=== PATIENT | female | born 2000 | race Caucasian/White ===

== ENCOUNTER 2024-09-05 20:32 | Emergency (ER) | payer BC, SELFPAY ==
[2024-09-05 20:53] VITALS: BP 120/67; PULSE 67; RESP 16; TEMP 36.4; O2SAT 97; BMI 19.3
--- NOTE | 2024-09-05 21:16 | ED_ITS ---
HPI - General Adult General Chief complaint: Chest Pain Stated complaint: chest pain, shortness of breath, dizziness Time Seen by Provider: 09/05/24 21:12 History of Present Illness HPI narrative: Pt reports she has had concerns about heart issues since May, had a workup at [facility] with personnel monitor . Pt states she does not have a dx at this point but has had elevated heart rates up to 200 BPM. Pt was advised if she had more frequent chest pains to be seen in ER. About 1 hour ago pt states having frequent intermittent chest pain, rates it as a 7 /10 when it comes 24-year-old young woman presenting to the emergency department with concern of chest pain. These are sharp momentary but of occurring more often today. In the right chest they are occurring primarily. Has a couple as we are talking which do not appear to be a notable on monitor. She notes rather high heart rates whenever she even mildly exerts herself. All the symptoms seem to have begun in May. She had a ZIO patch placed. I am able to review summarized results of this and noted to be without significant findings as described by primary provider. Labs were also done in July of this year and all unremarkable. This includes normal TSH and hemoglobin and chemistries. She does note a history of rather heavy periods and intermittently dizzy lightheaded and does seem to have an orthostatic component. She does admit that there was some conversation of POTS as a potential diagnosis. She notes her sister has this diagnosis. Has been actually referred now to [facility] subspecialist of some sort. She inquired as to whether not needed to be seen for chest pain or at least how often or how intense and was subsequently recommended to be seen in the emergency department due to frequency sharp pains. Diagnosis of PVCs has not been made. While were talking she does have a couple episodes where she grabs at her chest for just a moment. I did not see any evidence of arrhythmia on personnel monitor at this time. Related Data Home Medications ?Medication ?Instructions ?Recorded ?Confirmed hydroxyzine HCl 25 mg tablet 25 - 50 mg PO Q6H PRN anxiety 09/05/24 09/05/24 Allergies Allergy/AdvReac Type Severity Reaction Status Date / Time amoxicillin Allergy Unknown Verified 09/05/24 20:57 Review of Systems Status of ROS: Reports: 6 or more systems reviewed and unremarkable except as noted in History and below [facility] Medical History (Updated 09/05/24 @ 22:50 by Satish Garsia MD) No significant past medical history Surgical History (Updated 09/05/24 @ 22:08 by Raul Velazquez RN) No significant past surgical history Social History Smoking Status: Never smoker Second hand tobacco smoke exposure: No How often do you have a drink containing alcohol: never AUDIT-C Alcohol total score: 0 Non-prescribed substance use: denies use Exam Narrative: Exam Narrative: Very pleasant. Easily conversant. Breathing easily. Lungs are clear. Heart in regular rate and rhythm without murmur rub or gallop. No reproducible pain to palpation this time. She indicates that had been sore recently in this left low chest. She is well-perfused peripherally. Cranial nerves 2-12 intact. Const: Vital Signs, click to edit/add: Vital Signs - 24 hr 09/05/24 20:53 09/05/24 21:29 09/05/24 21:45 Temperature 97.6 F Pulse Rate [Pulse Oximeter] 67 Pulse Rate [orthos tatic lying Right Pulse Oximeter] 63 Pulse Rate [orthos tatic sitting Righ t Pulse Oximeter] 61 Pulse Rate [orthos tatic standing Rig ht Pulse Oximeter] 93 Respiratory Rate 16 Blood Pressure [Ri ght Upper Arm] 120/67 Blood Pressure [or thostatic lying Le ft Arm] 115/67 Blood Pressure [or thostatic sitting Left Arm] 118/75 Blood Pressure [or thostatic standing Left Arm] 124/99 H Pulse Oximetry 97 99 Oxygen Delivery Me thod Room Air 09/05/24 22:57 09/05/24 23:16 Temperature 97.6 F 97.6 F Pulse Rate [Pulse Oximeter] 74 74 Pulse Rate [orthos tatic lying Right Pulse Oximeter] Pulse Rate [orthos tatic sitting Righ t Pulse Oximeter] Pulse Rate [orthos tatic standing Rig ht Pulse Oximeter] Respiratory Rate 16 16 Blood Pressure [Ri ght Upper Arm] 118/65 118/65 Blood Pressure [or thostatic lying Le ft Arm] Blood Pressure [or thostatic sitting Left Arm] Blood Pressure [or thostatic standing Left Arm] Pulse Oximetry 97 Oxygen Delivery Me thod Room Air Documenting provider has reviewed patient's vital signs: yes Course Vital Signs Vital signs: Initial Vital Signs Temperature 97.6 F 09/05/24 20:53 Temperature Source Temporal Artery Scan 09/05/24 20:53 Pulse Rate 67 09/05/24 20:53 Respiratory Rate 16 09/05/24 20:53 Blood Pressure 120/67 09/05/24 20:53 Blood Pressure Mean 84 09/05/24 20:53 Blood Pressure Position Sitting 09/05/24 20:53 Pulse Oximetry 97 09/05/24 20:53 Oxygen Delivery Method Room Air 09/05/24 20:53 Vital Signs Temperature 97.6 F 09/05/24 20:53 Pulse Rate 67 09/05/24 20:53 Respiratory Rate 16 09/05/24 20:53 Blood Pressure 120/67 09/05/24 20:53 Pulse Oximetry 97 09/05/24 20:53 Oxygen Delivery Method Room Air 09/05/24 20:53 Temperature 97.6 F 09/05/24 23:16 Pulse Rate 74 09/05/24 23:16 Respiratory Rate 16 09/05/24 23:16 Blood Pressure 118/65 09/05/24 23:16 Pulse Oximetry 97 09/05/24 22:57 Oxygen Delivery Method Room Air 09/05/24 22:57 Medical Decision Making MDM Narrative Medical decision making narrative: An EKG done and reviewed by myself prior to seeing karlene shows normal sinus rhythm rate of 62. I would otherwise check a chest x-ray. She does note she vapes. I suppose could have pneumothorax or mediastinum here. Evaluate cardiac silhouette. Does not sound as a chest x-ray has been done yet. Check troponin and orthostatics. Orthostatics do produce some symptoms and pulse increase by over 20 points as well as interestingly diastolic blood pressure elevation. Chest x-ray reviewed by me is WNL with normal cardiac silhouette as well. No events on monitor during time in the emergency department. Labs are reassuring. Does have follow-up with Cardiology soon. See patient discharge plan for further discussion Lab Data Lab results reviewed: Yes I reviewed the patient's lab results Labs: Lab Results 09/05/24 Range/Units 21:29 POC Troponin I 0.00 L (0.01-0.04) ng/ml ECG Data Attestation: I personally reviewed and interpreted this ECG as follows: (Normal sinus rhythm rate of 62. No delta wave or other irregularity.) Discharge Plan Discharge Clinical Impression: Atypical chest pain, Tachycardia Additional Instructions: Stay well-hydrated. Return for persistent chest pain lasting an hour or recurrent chest pain or tachycardia lasting 2 hours or sooner if you are feeling associated lightheadedness or shortness of breath. Follow up with Cardiology on the as scheduled. Prescriptions: No Action hydroxyzine HCl 25 mg tablet 25 - 50 mg PO Q6H PRN (Reason: anxiety) Stand Alone Forms: [employer] Info Instructions
[2024-09-05 21:29] VITALS: BP 115/67; BP 118/75; BP 124/99; PULSE 61; PULSE 63; PULSE 93
--- NOTE | 2024-09-05 21:29 | CRLHL7_ITS ---
For Patients: As a result of the Century Cures Act, medical imaging exams and procedure reports are released immediately into your electronic medical record. You may view this report before your referring provider. If you have questions, please contact your health care provider. INDICATION: Chest pain. TECHNIQUE: Chest 2 views. COMPARISON: None. FINDINGS: Cardiovascular and mediastinum: Heart size and vasculature are normal in caliber and appearance. Lungs and pleural spaces: Lungs are clear. No sign of infiltrate or mass. No sign of pleural effusion. No pneumothorax. Bones and soft tissues: No significant findings. IMPRESSION: No acute or significant findings. Dictated by Jimenez Trejo MD @ 09/05/2024 9:56:10 PM (Electronically Signed)
[2024-09-05 21:45] VITALS: O2SAT 99
[2024-09-05 22:57] VITALS: BP 118/65; PULSE 74; RESP 16; TEMP 36.4; O2SAT 97
--- OUTSIDE RECORDS SUMMARY | 2024-09-05 23:09 | XMS_ITS | Clinical Summary ---
Author Organization [facility] Address [place], [place] [address] Care Team Providers Care Communications Senior Associate Name Role Phone Sara Russell MD Primary Care Prov ider Allergies Active Allergy Reactions Criticality Noted Date Comments Amoxicillin Hives 12/20/2006 Medications Medication Sig Dispensed Refills Start Date End Date Status hydrOXYzine HCL (ATARAX) 25 mg tabletIndications:Anx iety TAKE ONE TO TWO TABLETS BY MOUTH EVERY 6 HOURS NEEDED FOR ANXIETY 30 Tablet 07/08/2024 Active Active Problems Problem Noted Date Diagnosed Date Anxiety 09/30/2017 Sweaty armpits 09/30/2017 Menorrhagia with irregular cycle 09/30/2017 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 Encounters Date Type Department Care Team Description 08/25/2024 Telephone [facility] [address] [facility] [address] [place] [phone] Cardiology, Anw Appointment 08/11/2024 1:40 PM CDT Office Visit [facility] [address] [place] [address] Tanner Cruz MD Follow Up (Increased heart rate, zio patch) 08/11/2024 Travel 07/08/2024 2:05 PM CDT Office Visit [facility] [address] [place] [address] Tanner Cruz MD Concerns (Elevated heart rate, gets as high as 200 during a simple walk, gets SOB, worse in the heat, x 2 months); Medication Management 07/08/2024 8:00 AM CDT Office Visit [address] [place] [address] 07/08/2024 Travel 06/29/2024 Nurse Triage [facility] [address] [facility] [place] [address] Sara Russell MD Chest Pain; Fast Heartbeat 06/17/2024 Telephone [facility] [address] [facility] [place] [address] Sara Russell MD Appointment 06/13/2024 Refill [facility] [address] [facility] [place] [address] Sara Russell MD Refill Request (Hydroxyzine Hcl) from Last 3 Months Immunizations Name Administration Dates Next Due DTaP 05/18/2008, 4,01/08/2003,11/23,2002 HIB-HepB (Comvax) 01/14/2004,2002,09/25/20 02 HPV 9 (Gardasil 9) 06/05/2019 Hepatitis A (Peds) 06/05/2019 Inactivated Polio Vaccine 05/18/2008,10/2004,2002,09/25 MENINGOCOCCAL VACCINE 2 VIAL 2MO-55YO (MENVEO) 06/05/2019,06/21/2015 MMR 06/03/2008,08/05/2003 Pneumococcal conj 7-Valent (Prevnar 7) 3,2002,2002 Tdap 06/21/2015 Varicella Vaccine 06/03/2008,08/05/2003 Social History Tobacco Use Types Packs/Day Years Used Date Smoking Tobacco: Never Smokeless Tobacco: Never Tobacco Cessation:Counseling Given: Yes Comments:dad smokes outside. Alcohol Use Standard Drinks/Week Comments No 0 (1 standard drink = 0.6 oz pur e alcohol) PHQ-2 Answer Date Recorded PHQ-2 TOTAL SCORE 2 07/08/2024 Social Connections Answer Date Recorded Do you often feel lonely or isolated from those around you? 0 08/11/2024 Financial Resource Strain Answer Date R ecorded Difficulty of Paying Living Expenses 3 08/11/2024 Difficulty of Paying Living Expenses Not on file 08/11/2024 Food Insecurity Answer Date Recorded Do you worry your food will run out before you are able to buy more? 1 08/11/2024 Transportation Needs Answer Date Record ed Does lack of transportation keep you from medica l appointments? 1 08/11/2024 Does lack of transportation keep you from work, meetings or getting things that you need? 1 08/11/2024 Housing Stability Answer Date Recorded What is your housing situation today? 1 08/11/2024 Sex and Gender Information Value Date Recorded Sex Assigned at Not on file Gender Identity Not on file Sexual Orientation Not on file Obstetrics History Last Filed Vital Signs Vital Sign Reading Time Taken Comments Blood Pressure 109/75 08/11/2024 1:53 PM CDT Pulse 82 08/11/2024 1:53 PM CDT Temperature 36.9 ??C (98.4 ??F) 06/06/2022 1:43 PM CD T Respiratory Rate 12 06/06/2022 1:43 PM CDT Oxygen Saturation 97% 08/11/2024 1:53 PM CDT Inhaled Oxygen Concentration - - Weight 51.5 kg (113 lb 9.6 oz) 08/11/2024 1:53 P M CDT Height 165.1 cm (5' 5) 08/11/2024 1:53 PM CDT Body Mass Index 18.9 08/11/2024 1:53 PM CDT Plan of Treatment Upcoming Encounters Date Type Department Care Team (Late st Contact Info) Description 09/17/2024 1:30 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 Office [facility] [place] 2[facility] at [facility] [address] [facility] [place] [address] Lm Vernon MD [address] [place] [address] Health Maintenance Due Date Last Done Comments HIV for age 15-65 2017 HPV series for age 9-26 (2 - 3-dose series) 07/03/2019 06/05/2019 Chlamydia for age 16-24 06/05/2020 06/05/2019 Hepatitis C screening for age 18-79 2020 Pap test for age 21-65 2023 COVID-19 vaccine series (2023- season) 2024 Influenza for age 9-49 07/05/2024 Tetanus booster 06/21/2025 06/21/2015 Depression screening for age 12+ 07/08/2025 07/08/2024, 06/11/2023, 06/11/2023, Additional history exists BMI (ht and wt on same day) for age 18+ 08/11/2025 08/11/2024, 07/08/2024, 06/11/2023, Additional history exists Pneumococcal series for age 6-64 Aged Out 01/08/2003, 2002, 2002 No longer eligible based on patient's age to complete this topic Tdap Completed 06/21/2015 Procedures Procedure Name Priority Date/Time Associated Diagnosis Comments EKG 12 LEAD Routine 07/09/2024 2:18 PM CDT Tachycardia MI READING EKG - NO CHARGE, COMP ONLY Routine 07/09/2024 2:17 PM CDT Tachycardia EXTENDED HOLTER Routine 07/09/2024 12:00 AM CDT Tachycardia TSH WITH REFLEX Routine 07/08/2024 3:49 PM CDT Tachycardia COMP METABOLIC PANEL Routine 07/08/2024 3:49 PM CDT Tachycardia CBC W PLT NO DIFF Routine 07/08/2024 3:4 9 PM CDT Tachycardia GC CHLAMYDIA TRACH PROBE Routine 06/05/2019 10:39 AM CDT Screening for gonorrhea from Last 3 Months or Most Recently Relevant to Health Maintenance Results * EKG 12 LEAD (07/09/2024 2:18 PM CDT) Tanner Cruz MD EKG ORD * MI READING EKG - NO CHARGE, COMP ONLY (07/09/2024 2:17 PM CDT) Tanner Cruz MD PB - PROVIDER RE ADINGS * EXTENDED HOLTER (07/09/2024 12:00 AM CDT) Tanenr Cruz MD CARDIAC SERVICES ORD * TSH WITH REFLEX (07/08/2024 3:49 PM CDT) TSH 0.85 0.27 - 4.20 uIU/mL 07/09/2024 12:24 AM CDT [facility] Blood BLOOD SPECIMEN / Unknown Venipuncture / Unknown 07/08/2024 3:49 PM CDT 07/08/2024 3:49 PM CDT Narrative [facility] - 07/09/2024 12:24 AM CDT In Adults, TSH values between 5.00 and 10.00 uIU/ml do not necessarily indicate the presence of Hypothyroidism. Correlation with clinical findings such as presence of goiter and/or Thyroperoxidase (TPO) Antibody may be helpful. For more information please refer to MARIA GUADALUPE 2004; 291: [phone]. Tanner Cruz MD CHEMISTRY [facility] [address] [place] [address], * (ABNORMAL) CBC W PLT NO DIFF (07/08/2024 3:49 PM CDT) WHITE BLOOD COUNT 9.0 4.5 - 11.0 thou/cu mm 07/08/2024 3:59 PM CDT [facility] RED BLOOD COUNT 5.24(H) 4.00 - 5.20 mil/cu mm 07/08/2024 3:59 PM CDT [facility] HEMOGLOBIN 15.3 12.0 - 16.0 g/dL 07/08/2024 3:59 PM CDT [facility] HEMATOCRIT 44.5 33.0 - 51.0 % 07/08/2024 3:59 PM CDT [facility] MCV 85 80 - 100 fL 07/08/2024 3:59 PM CDT [facility] MCH 29.2 26.0 - 34.0 pg 07/08/2024 3:59 PM CDT [facility] MCHC 34.4 32.0 - 36.0 g/dL 07/08/2024 3:59 PM CDT [facility] RDW 12.7 11.5 - 15.5 % 07/08/2024 3:59 PM CDT [facility] PLATELET COUNT 308 140 - 440 thou/cu mm 07/08/2024 3:59 PM CDT [facility] MPV 11.2(H) 6.5 - 11.0 fL 07/08/2024 3:59 PM CDT [facility] Blood BLOOD SPECIMEN / Unknown Venipuncture / Unknown 07/08/2024 3:49 PM CDT 07/08/2024 3:49 PM CDT Tanner Cruz MD HEMATOLOGY [facility] [address] [id number], * (ABNORMAL) COMP METABOLIC PANEL (07/08/2024 3:49 PM CDT) SODIUM 139 136 - 145 mmol/L 07/09/2024 12:24 AM CDT [facility] POTASSIUM 4.5 3.5 - 5.1 mmol/L 07/09/2024 12:24 AM CDT [facility] CHLORIDE 101 98 - 107 mmol/L 07/09/2024 12:24 AM CDT [facility] CO2,TOTAL 26 22 - 29 mmol/L 07/09/2024 12:24 AM CDT [facility] ANION GAP 12 5 - 18 07/09/2024 12:24 AM CDT [facility] GLUCOSE 91 70 - 99 mg/dL 07/09/2024 12:24 AM CDT [facility] CALCIUM 10.0 8.6 - 10.0 mg/dL 07/09/2024 12:24 AM CDT [facility] BUN 10 6 - 20 mg/dL 07/09/2024 12:24 AM T [facility] CREATININE 0.74 0.50 - 0.90 mg/dL 07/09/2024 12:24 AM T [facility] BUN/CREAT RATIO 14 10 - 20 12:24 AM T [facility] eGFR >90 >90 mL/min/1.7 3m2 07/09/2024 12:24 AM T [facility] Comment:As of 2022, eG FR is calculated by the CKD-EPI creatinine equation without race adjustment. ??eGFR can be influenced by muscle mass, exercise, and diet. ??The reported eGFR is an estimation only and is only applicable if the renal function is stable. ALBUMIN 4.7 4.0 - 4.9 g/dL 07/09/2024 12:24 AM T [facility] PROTEIN,TOTAL 8.1(H) 6.0 - 8.0 g/dL 07/09/2024 12:24 AM T [facility] BILIRUBIN,TOTAL 0.4 0.0 - 1.2 mg/dL 07/09/2024 12:24 AM T [facility] ALK PHOSPHATASE 81 35 - 104 IU/L 07/09/2024 12:24 AM [facility] ALT (SGPT) 12 10 - 35 IU/L 07/09/2024 12:24 AM T [facility] AST (SGOT) 26 10 - 35 IU/L 07/09/2024 12:24 AM T [facility] Blood BLOOD SPECIMEN / Unknown Venipuncture / Unknown 07/08/2024 3:49 PM CDT 07/08/2024 3:49 PM CDT Tanner Cruz MD CHEMISTRY [facility] [address] [place] [address], * GC CHLAMYDIA TRACH PROBE (06/05/2019 10:39 AM CDT) CHLAMYDIA PROBE Negative 1:34 PM CDT [facility] N GONORRHOEAE PROBE Negative 06/08/2019 1:34 PM CDT [facility] Other URINE SPECIMEN / Unknown Non-Blood / Unknown 06/05/2019 10:39 AM CDT 06/05/2019 10:39 AM CDT Sara Russell MD [facility] [address] [place] [address], from Last 3 Months or Most Recently Relevant to Health Maintenance Care Teams Communications Senior Associate Relationship Specialty Start Date End Date Sara Russell MD [address] [place] [address] PCP - General 12/20/06
[2024-09-05 23:16] VITALS: BP 118/65; PULSE 74; RESP 16; TEMP 36.4
== END 2024-09-05 23:17 | disposition home or self-care (01) ==
LOC: ED 23:07
PROVIDERS: Emergency Provider Family Medicine; PCP Family Medicine
DX: R07.9 Chest pain, unspecified (principal); R00.0 Tachycardia, unspecified
CPT/HCPCS: 71046; 84484; 94761; 99284